=== PATIENT | female | born 1990 | race Caucasian/White ===

== ENCOUNTER 2024-08-16 12:47 | Emergency (ER) | payer OTHER ==
[~2024-08-16] VITALS: Ht 162.6 cm; Wt 88.4 kg
[2024-08-16 13:00] VITALS: BP 149/104
[2024-08-16] MEDS ORDERED: ELIQUIS2.5 MG PO (13:13)
[2024-08-16 13:28] LABS: BASO% 0.5 % (0-3); EOS% 1.1 % (0-8); HEMATOCRIT 35.8 % (37.0-47.0); HEMOGLOBIN 11.6 g/dl (12.0-16.0); IMMATURE GRANULOCYTES 0.5 % (0.0-5.0); LYMPH% 25.5 % (15-41); MEAN CELL VOLUME 87.5 fL CALC (80.0-100.0); MEAN CORPUSCULAR HGB 28.4 pG CALC (26.0-32.0); MEAN CORPUSCULAR HGB CONC 32.4 g/dL CAL (32.0-36.0); MONO% 6.8 % (2-13); NEUT# 2.88 thou/uL (2.00-7.15); NEUT% 65.6 % (42-76); RED BLOOD COUNT 4.09 mill/uL (4.20-5.60); RED CELL DISTRI WIDTH 12.4 % (11.5-15.5)
[2024-08-16 13:39] LABS: ALBUMIN 4.4 g/dL (3.2-5.0); BILIRUBIN, TOTAL 0.8 mg/dL (0.02-1.3); CREATININE 0.6 mg/dL (0.5-1.0); POTASSIUM 4.1 mmol/l (3.5-5.1); TOTAL PROTEIN 7.3 g/dL (6.3-8.2)
[2024-08-16 14:42] VITALS: BP 122/81
[2024-08-16 14:45] VITALS: BP 120/71
[2024-08-16 15:00] VITALS: BP 127/81
== END 2024-08-16 15:43 | disposition left against medical advice (07) ==
LOC: ED 12:47
PROVIDERS: Family Medicine
DX: I82.C21 Chronic embolism and thrombosis of right internal jugular vein (principal); C81.90 Hodgkin lymphoma, unspecified, unspecified site; Z79.01 Long term (current) use of anticoagulants; Z53.29 Procedure and treatment not carried out because of patient's decision for other reasons